=== PATIENT | female | born 1995 | race African-American/Black ===

== ENCOUNTER 2017-03-16 09:39 | Emergency (ER) | payer OTHER ==
[~2017-03-16] VITALS: Ht 162.6 cm; Wt 70.0 kg
[2017-03-16] MEDS ORDERED: ONDANSETRON HCL 4 MG/2 ML VIAL IVP ONE (10:00)
[2017-03-16] MEDS ORDERED: SODIUM CHLOR 0.9% 1000 ML INJ 1,000 ML IV SCH (10:00)
[2017-03-16] MEDS ORDERED: SODIUM CHLORIDE 0.9% FLUSH 10 ML FLUSH IV FLUSH PRN (10:00)
[2017-03-16] MEDS ORDERED: ZOFR4TAB3 SL (10:09)
--- NOTE | 2017-03-16 10:11 | PD ---
HPI Chief Complaint: GI Complaint Time Seen by Provider: 09:49 Travel History International Travel<30 days: No Contact w/Intl Traveler<30days: No Traveled to known affect area: No History of Present Illness HPI 21-year-old woman, 36 weeks with an EDC April 04, 2, first was a full-term uncomplicated vaginal delivery at 39 weeks, being seen by a websphere developer at [facility], who presents to the emergency department with nausea and vomiting for the past 3 days. States symptoms initially started with nausea and that she's had vomiting persistently since then. She states she has not been able to keep any food or drink down for the past 2-3 days. She denies any significant abdominal pain. She's had no pelvic cramping, bleeding, leakage of fluid. She states the baby feels vigorous and active. No fevers or chills. No diarrhea. No unusual or undercooked foods. No sick contacts. She otherwise had been feeling well and healthy. She has not had previous trouble with nausea and vomiting earlier in the . She do not have trouble vomiting and her previous . History Past Medical History Medical History: Denies Significant Hx Tetanus Vaccination: > 5 Years Influenza Vaccination: No LMP: 07/26/16 : 2 Para: 1 Past Surgical History Surgical History: No Previous Surgery Social History Alcohol Use: No Tobacco Use: No Allergies-Medications (Allergen,Severity, Reaction): Coded Allergies: No Known Allergies (Unverified , 03/16/17) Reported Meds & Prescriptions Reported Meds & Active Scripts Active Zofran Odt (Ondansetron Odt) 4 Mg Tab 4 Mg SL Q8HR PRN May substitute non-ODT form. Review of Systems Except as stated in HPI: all other systems reviewed are Neg Physical Exam Narrative GENERAL: Well-appearing 21-year-old woman, no acute distress. SKIN: Focused skin assessment warm/dry. NECK: Trachea midline. No JVD. CARDIOVASCULAR: Regular rate and rhythm. No murmur appreciated. RESPIRATORY: No accessory muscle use. Clear to auscultation. Breath sounds equal bilaterally. GASTROINTESTINAL: Abdomen is gravid, fairly taut. There is no tenderness at all. MUSCULOSKELETAL: No obvious deformities. No edema. NEUROLOGICAL: Awake and alert. No obvious cranial nerve deficits. Motor grossly within normal limits. Normal speech. PSYCHIATRIC: Appropriate mood and affect; insight and judgment normal. Data Data Last Documented VS Vital Signs Date Time Temp Pulse Resp B/P Pulse Ox O2 Delivery O2 Flow Rate FiO2 03/16/17 09:50 16 Orders Complete Blood Count With Diff (03/16/17 10:00) Comprehensive Metabolic Panel (03/16/17 10:00) Lipase (03/16/17 10:00) Urinalysis - C+S If Indicated (03/16/17 10:00) Iv Access Insert/Monitor (03/16/17 10:00) Ondansetron Inj (Zofran Inj) (03/16/17 10:00) Sodium Chlor 0.9% 1000 Ml Inj (Ns 1000 M (03/16/17 10:00) Sodium Chloride 0.9% Flush (Ns Flush) (03/16/17 10:00) Heart Tones (03/16/17 10:00) Urine Culture (03/16/17 08:55) Nitrofurantoin Monohyd Macrocr (Macrobid (03/16/17 11:45) Labs Laboratory Tests Test 03/16/17 03/16/17 08:55 10:00 Urine Color YELLOW Urine Turbidity HAZY Urine pH 6.5 Urine Specific [place] 1.024 Urine Protein 30 mg/dL Urine Glucose (UA) NEG mg/dL Urine Ketones 150 mg/dL Urine Occult Blood NEG Urine Nitrite NEG Urine Bilirubin NEG Urine Urobilinogen 4.0 MG/DL Urine Leukocyte Esterase LARGE Urine RBC 4 /hpf Urine WBC 80 /hpf Urine Squamous Epithelial 15 /hpf Cells Urine Bacteria FEW /hpf Urine Mucus FEW /lpf Microscopic Urinalysis Comment CULTURE INDICATED White Blood Count 5.7 TH/MM3 Red Blood Count 4.17 MIL/MM3 Hemoglobin 11.5 GM/DL Hematocrit 35.2 % Mean Corpuscular Volume 84.6 FL Mean Corpuscular Hemoglobin 27.7 PG Mean Corpuscular Hemoglobin 32.7 % Concent Red Cell Distribution Width 14.1 % Platelet Count 157 TH/MM3 Mean Platelet Volume 9.7 FL Neutrophils (%) (Auto) 75.3 % Lymphocytes (%) (Auto) 12.7 % Monocytes (%) (Auto) 11.5 % Eosinophils (%) (Auto) 0.2 % Basophils (%) (Auto) 0.3 % Neutrophils # (Auto) 4.3 TH/MM3 Lymphocytes # (Auto) 0.7 TH/MM3 Monocytes # (Auto) 0.7 TH/MM3 Eosinophils # (Auto) 0.0 TH/MM3 Basophils # (Auto) 0.0 TH/MM3 CBC Comment DIFF FINAL Differential Comment Sodium Level 136 MEQ/L Potassium Level 3.8 MEQ/L Chloride Level 104 MEQ/L Carbon Dioxide Level 22.4 MEQ/L Anion Gap 10 MEQ/L Blood Urea Nitrogen 7 MG/DL Creatinine 0.60 MG/DL Estimat Glomerular Filtration 150 ML/MIN Rate Random Glucose 55 MG/DL Calcium Level 8.6 MG/DL Total Bilirubin 0.7 MG/DL Aspartate Amino Transf 30 U/L (AST/SGOT) Alanine Aminotransferase 18 U/L (ALT/SGPT) Alkaline Phosphatase 141 U/L Total Protein 7.0 GM/DL Albumin 2.9 GM/DL Lipase 177 U/L [facility] Medical Decision Making Medical Screen Exam Complete: Yes Emergency Medical Condition: Yes Interpretation(s) LABS: CBC unremarkable. CMP unremarkable. Lipase unremarkable. Coags remarkable for pyuria. Differential Diagnosis Gastritis, enteritis, likely gastric motility, infection, UTI, other Narrative Course Medical decision making Well-appearing 21-year-old woman, 36 weeks , here with vomiting. No abdominal pain, no obese symptoms. Looks generally well. We'll check heart tones, check labs, IV fluid hydration. We'll discuss with OB hospitalist , we'll likely send her for OB check as well. Diagnosis Primary Impression: Nausea & vomiting Patient Instructions: General Instructions Additional Instructions: Use Zofran as needed for nausea or vomiting. Return immediately to the OB ED for any nominal cramping, bleeding, leakage of fluid, contractions, or decreased movement. Med/Other Pt SpecificInfo: Prescription(s) given Scripts Ondansetron Odt (Zofran Odt)4 Mg Tab4 Mg SL Q8HR PRN (Nausea/Vomiting) #15 TAB May substitute non-ODT form. Prov:Jair Bran MD 03/16/17 Disposition: 01 DISCHARGE HOME Condition: Stable Jair Bran MD March 16, 2017 10:11
[2017-03-16 10:33] LABS: AUTOMATED NEUTROPHIL # 4.3 TH/MM3 (1.8-7.7); BASOPHIL % 0.3 % (0.0-2.0); EOSINOPHIL % 0.2 % (0.0-4.0); HEMATOCRIT 35.2 % (35.0-46.0); HEMO FLAGS DIFF FINAL; LYMPH % 12.7 % (9.0-44.0); LYMPHOCYTE # 0.7 TH/MM3 (1.0-4.8); MEAN CELL VOLUME 84.6 FL (80.0-100.0); MEAN CORPUSCULAR HEMOGLOBIN 27.7 PG (27.0-34.0); MEAN CORPUSCULAR HGB CONC 32.7 % (32.0-36.0); MONO % 11.5 % (0.0-8.0); NEUT % 75.3 % (16.0-70.0); PLATELET COUNT 157 TH/MM3 (150-450); RED BLOOD COUNT 4.17 MIL/MM3 (4.00-5.30); RED CELL DISTRIBUTION WIDTH 14.1 % (11.6-17.2); WHITE BLOOD COUNT 5.7 TH/MM3 (4.0-11.0)
[2017-03-16 10:51] LABS: ALT (GPT) 18 U/L (10-53); ANION GAP 10 MEQ/L (5-15); AST (GOT) 30 U/L (15-37); BICARBONATE 22.4 MEQ/L (21.0-32.0); BLOOD UREA NITROGEN 7 MG/DL (7-18); CHLORIDE 104 MEQ/L (98-107); GLOMERULAR FILTRATION RATE 150 ML/MIN (>89); POTASSIUM 3.8 MEQ/L (3.5-5.1); SODIUM (NA) 136 MEQ/L (136-145)
[2017-03-16 10:54] LABS: ALKALINE PHOSPHATASE 141 U/L (45-117); TOTAL BILIRUBIN ADULT 0.7 MG/DL (0.2-1.0)
[2017-03-16 11:09] LABS: BACTERIA, URINE FEW /hpf; BLOOD, URINE NEG (NEG); COMMENT (UR) CULTURE INDICATED; CULTURE IF INDICATED CULTURE INDICATED; GLUCOSE,URINE NEG (NEG); KETONE, URINE 150 mg/dL (NEG); MUCUS URINE FEW /lpf (OCC); NITRITE,URINE NEG (NEG); PH, URINE 6.5 (5.0-8.5); SQUAMOUS EPITHELIAL CELL URINE 15 /hpf (0-5); URINE COLOR YELLOW (YELLW/STRAW)
[2017-03-16 11:38] VITALS: BP 108/60; TEMP 97.8
[2017-03-16] MEDS ORDERED: NITROFURANTOIN MONOHYD MACROCR 100 MG CAP PO ONE (11:45)
--- NOTE | 2017-03-16 12:45 | PD ---
HPI Chief Complaint Nausea and vomiting Date Seen: March 16, 2017 Time Seen: 12:40 Travel History International Travel<30 Days: No Contact w/Intl Traveler<30Days: No Known Affected Area: No History of Present Illness HPI 21-year-old who is at 37 weeks gestation comes here from the main ED. Patient states that she woke up with nausea vomiting and had some continued emesis and went to the main emergency department. She has no issues during this and sees Nayeli Taylor for her care who performed a group B strep 1 week ago. Last had a spontaneous vaginal delivery at 39 weeks without any issues. Patient was treated with IV fluids and anti- medics and states that she is feeling very much better and would like something to eat and drink. I spoke with the ED physician and requested patient come up to labor and delivery for monitoring given her dehydration History Past Medical History Medical History: Denies Significant Hx Obstetric History Obstetric History Spontaneous vaginal delivery at 39 weeks Past Surgical History Surgical History: No Previous Surgery Family History Family History: Negative Social History Alcohol Use: No Tobacco Use: No Substance Abuse: No Allergies-Medications (Allergen,Severity, Reaction): Coded Allergies: No Known Allergies (Unverified , 03/16/17) Home Meds Active Scripts Ondansetron Odt (Zofran Odt)4 Mg Tab4 Mg SL Q8HR PRN (Nausea/Vomiting) #15 TAB May substitute non-ODT form. Prov:Jair Bran MD 03/16/17 Review of Systems Except as stated in HPI: all other systems reviewed are Neg Physical Exam Vital Signs Date Time Temp Pulse Resp B/P Pulse Ox O2 Delivery O2 Flow Rate FiO2 03/16/17 11:38 97.8 77 16 108/60 100 03/16/17 09:50 16 Narrative GENERAL: Well-nourished, well-developed patient. SKIN: Warm and dry. CARDIOVASCULAR: Regular rate and rhythm without murmurs, gallops, or rubs. RESPIRATORY: Breath sounds equal bilaterally. No accessory muscle use. BREASTS: Bilateral exam showed no masses , no retractions, no nipple discharge. ABDOMEN/GI: Abdomen soft, non-tender, bowel sounds present, no rebound, no guarding Gravid to [-37] weeks size Fundal Height: [37-] GENITOURINARY: Deferred External Genitalia: intact and normal in appearance BUS glands: [-] Cervix: [-] Dilatation: [-] Effacement: [-] Station: [-] Presentation: [-] Membranes: [intact or ruptured] Uterine Contractions: [None-] FHT's: Category: [-1] Baseline: [-140] Reactive: [-Moderate] Variability: [Moderate-] Decels: [Absent-] EXTREMITIES: No cyanosis or edema. BACK: Nontender without obvious deformity. No CVA tenderness. NEUROLOGICAL: Awake and alert. Motor and sensory grossly within normal limits. Five out of 5 muscle strength in all muscle groups. Normal speech. Data Data Vital Signs Reviewed: Yes Orders Complete Blood Count With Diff (03/16/17 10:00) Comprehensive Metabolic Panel (03/16/17 10:00) Lipase (03/16/17 10:00) Urinalysis - C+S If Indicated (03/16/17 10:00) Iv Access Insert/Monitor (03/16/17 10:00) Ondansetron Inj (Zofran Inj) (03/16/17 10:00) Sodium Chlor 0.9% 1000 Ml Inj (Ns 1000 M (03/16/17 10:00) Sodium Chloride 0.9% Flush (Ns Flush) (03/16/17 10:00) Heart Tones (03/16/17 10:00) Urine Culture (03/16/17 08:55) Nitrofurantoin Monohyd Macrocr (Macrobid (03/16/17 11:45) Labs Laboratory Tests Test 03/16/17 03/16/17 08:55 10:00 Urine Color YELLOW Urine Turbidity HAZY Urine pH 6.5 Urine Specific [place] 1.024 Urine Protein 30 Urine Glucose (UA) NEG Urine Ketones 150 Urine Occult Blood NEG Urine Nitrite NEG Urine Bilirubin NEG Urine Urobilinogen 4.0 Urine Leukocyte Esterase LARGE Urine RBC 4 Urine WBC 80 Urine Squamous Epithelial 15 Cells Urine Bacteria FEW Urine Mucus FEW Microscopic Urinalysis Comment CULTURE INDICATED White Blood Count 5.7 Red Blood Count 4.17 Hemoglobin 11.5 Hematocrit 35.2 Mean Corpuscular Volume 84.6 Mean Corpuscular Hemoglobin 27.7 Mean Corpuscular Hemoglobin 32.7 Concent Red Cell Distribution Width 14.1 Platelet Count 157 Mean Platelet Volume 9.7 Neutrophils (%) (Auto) 75.3 Lymphocytes (%) (Auto) 12.7 Monocytes (%) (Auto) 11.5 Eosinophils (%) (Auto) 0.2 Basophils (%) (Auto) 0.3 Neutrophils # (Auto) 4.3 Lymphocytes # (Auto) 0.7 Monocytes # (Auto) 0.7 Eosinophils # (Auto) 0.0 Basophils # (Auto) 0.0 CBC Comment DIFF FINAL Differential Comment Sodium Level 136 Potassium Level 3.8 Chloride Level 104 Carbon Dioxide Level 22.4 Anion Gap 10 Blood Urea Nitrogen 7 Creatinine 0.60 Estimat Glomerular Filtration 150 Rate Random Glucose 55 Calcium Level 8.6 Total Bilirubin 0.7 Aspartate Amino Transf 30 (AST/SGOT) Alanine Aminotransferase 18 (ALT/SGPT) Alkaline Phosphatase 141 Total Protein 7.0 Albumin 2.9 Lipase 177 Date/Time Procedure Status Source Growth 03/16/17 08:55 Urine Culture Worksheet Urine Clean Catch Pending MDM Medical Record Reviewed: Yes Plan Patient much improved since her IV fluids and anti-medics in the ED Category 1 heart rate tracing We'll give her oral hydration to ensure that she is able to keep down Patient had a follow-up to Nayeli Taylor on and has a prescription for Zofran to take home with her Diagnosis Diagnosis: Primary Impression: Nausea & vomiting Additional Impressions: 37 weeks gestation of Mild dehydration Disposition: 01 DISCHARGE HOME Condition: Stable Scripts Ondansetron Odt (Zofran Odt)4 Mg Tab4 Mg SL Q8HR PRN (Nausea/Vomiting) #15 TAB May substitute non-ODT form. Prov:Jair Brna MD 03/16/17 Patient Instructions: General Instructions, Nausea and Vomiting in ( ED) Additional Instructions: Use Zofran as needed for nausea or vomiting. Return immediately to the OB ED for any nominal cramping, bleeding, leakage of fluid, contractions, or decreased movement. Departure Forms: Tests/Procedures Dayan Jenkins MD March 16, 2017 12:45
== END 2017-03-16 13:20 | disposition home or self-care (01) ==
LOC: HOBED 09:39 → NEPD 11:51 → HOBED 11:55
DX: O21.0 Mild hyperemesis gravidarum (principal); E86.0 Dehydration; B96.89 Other specified bacterial agents as the cause of diseases classified elsewhere; Z3A.36 36 weeks gestation of pregnancy
CPT/HCPCS: 59025; 80053; 81001; 83690; 85025; 87086; 96361; 96374; 99284; J2405; J7030

== ENCOUNTER 2017-04-01 06:04 | Inpatient (IN) | payer OTHER ==
[2017-04-01] VITALS (7 sets, daily range): BP systolic 102–106; BP diastolic 67–83; PULSE 67–77; RESP 16–20; TEMP 98–98.4; O2SAT 99
[~2017-04-01] VITALS: Ht 162.6 cm; Wt 69.4 kg
[~2017-04-01 06:04] MED LIST: ZOFR4TAB3 SL
[2017-04-01] MEDS ORDERED: OXYTOCIN 30 UNITS-500ML PREMIX 500 ML ONE (06:14)
[2017-04-01] MEDS ORDERED: [UNRECOGNIZED DRUG - OTHER] (06:55)
[2017-04-01] MEDS ORDERED: SODIUM CHLORIDE 0.9% FLUSH 10 ML FLUSH IV FLUSH PRN (07:00)
[2017-04-01] MEDS ORDERED: ZOLPIDEM TARTRATE 5 MG TAB PO PRN (07:00)
[2017-04-01] MEDS ORDERED: ALUMINUM/MAGNESIUM/SIMETH 30 ML CUP PO PRN (07:00)
[2017-04-01] MEDS ORDERED: ONDANSETRON ODT 4 MG TAB PO PRN (07:00)
[2017-04-01] MEDS ORDERED: BENZOCAINE 20% TOPICAL SPRAY 60 ML CAN TOPICAL PRN (07:00)
[2017-04-01] MEDS ORDERED: WITCH HAZEL 50%/GLYCERIN 12.5% 40 PAD JAR TOPICAL PRN (07:00)
[2017-04-01] MEDS ORDERED: DOCUSATE SODIUM 50 MG/SENNA 8.6 MG TAB PO PRN (07:00)
--- NOTE | 2017-04-01 07:13 | PD.OB.DELI ---
Delivery Date: Apr 01, 2017 Anesthesia: None Episiotomy: None Vaginal Delivery: Normal, Spontaneous Presentation: Occiput anterior Nuchal Cord: None Delayed cord clamping (45 sec): No : Female One Minute : 8 Five Minute : 9 Weight: 5lb 14.2 oz Placenta: Spontaneous delivery, Intact, 3 vessel cord Laceration: No lacerations Additional Information Patient presented to L & D complete. AROM was performed and patient delivered via after admission to L & D. EBL 200cc Precipitous delivery Delivery performed by Dr. Celeste and Keely Goodrich MD Apr 01, 2017 07:13
[2017-04-01] MEDS ORDERED: OXYTOCIN 10 UNIT/ML AMP IM ONE (07:30)
--- NOTE | 2017-04-01 07:36 | HHI.HP ---
HPI Chief Complaint Contractions Date Seen: Apr 01, 2017 Time Seen: 06:30 Travel History International Travel<30 Days: No Contact w/Intl Traveler<30Days: No Known Affected Area: No History of Present Illness HPI Patient 21-year-old black female at 39 weeks followed by Nayeli Taylor care presents now precipitous labor completely dilated. She is intact membranes heart rate tracing is reactive and she is lb regularly. Cervix is 10 cm with a bulging bag Para: 1 : 2 History Obstetric History Obstetric History One vaginal delivery Social History Alcohol Use: No Tobacco Use: No Substance Abuse: No Allergies-Medications (Allergen,Severity, Reaction): Coded Allergies: No Known Allergies (Unverified , 04/01/17) Home Meds Reported Medications [prenatalvitamin] No Conflict Check Daily 04/01/17 Discontinued Scripts Ondansetron Odt (Zofran Odt)4 Mg Tab4 Mg SL Q8HR PRN (Nausea/Vomiting) #15 TAB May substitute non-ODT form. Prov:Jair Bran MD 03/16/17 Review of Systems General / Constitutional: No: Fever, Weight Gain, Chills, Other Eyes: No: Diploplia, Blurred Vision, Visual changes, Pain, Photophobia HENT: No: Headaches, Vertigo, Lightheadedness Cardiovascular: No: Irregular Rhythm, Chest Pain or Discomfort, Palpitations, Tachycardia, Syncope, Varicosities, Edema, Cyanosis Respiratory: No: Cough, Short of Breath, Other Gastrointestinal: No: Nausea, Vomiting, Diarrhea Genitourinary: No: Decreased Urinary Output, Oliguria Musculoskeletal: No: Limited ROM, Weakness, Cramping, Edema, Pain Skin: No Rash, No Itching, No Dryness, No Lumps, No Change in Pigmentation, No Change in Nails, No Alopecia, No Lesions Neurologic: No: Weakness, Dizziness, Syncope, Focal Abnormalities, Coordination Problem, Headache, Slurred Speech, Seizures Psychiatric: No: Depression, Suicidal Ideations, Homicidal Ideation Endocrine: No: Heat Intolerance, Cold Intolerance, Polydipsia, Polyuria, Other Physical Exam Vital Signs Date Time Temp Pulse Resp B/P Pulse Ox O2 Delivery O2 Flow Rate FiO2 04/01/17 07:23 18 04/01/17 07:21 98.0 04/01/17 07:15 77 102/83 04/01/17 06:56 18 Narrative GENERAL: Well-nourished, well-developed patient. SKIN: Warm and dry. HEAD: Normocephalic and atraumatic. EYES: No scleral icterus. No injection or drainage. ENT: No nasal drainage noted. Mucous membranes pink. Airway patent. NECK: Supple, trachea midline. No JVD. CARDIOVASCULAR: Regular rate and rhythm without murmurs, gallops, or rubs. RESPIRATORY: Breath sounds equal bilaterally. No accessory muscle use. BREASTS: Bilateral exam showed no masses , no retractions, no nipple discharge. ABDOMEN/GI: Abdomen soft, non-tender, bowel sounds present, no rebound, no guarding Gravid to [39-] weeks size Fundal Height: [39-] GENITOURINARY: External Genitalia: intact and normal in appearance BUS glands: [-] Cervix: [-] Dilatation: [10-] Effacement: [-100] Station: [-1] Presentation: [vtx-] Membranes: [intact ] Uterine Contractions: [reg-] FHT's: Category: [-1] Baseline: [133-] Reactive: [yes-] Variability: [mod-] Decels: [-0] EXTREMITIES: No cyanosis or edema. BACK: Nontender without obvious deformity. No CVA tenderness. NEUROLOGICAL: Awake and alert. Motor and sensory grossly within normal limits. Five out of 5 muscle strength in all muscle groups. Normal speech. Data Data Orders Oxytocin 30 Units-500ml Premix (Pitocin (04/01/17 06:14) Oxytocin Inj (Pitocin Inj) (04/01/17 07:30) Vital Signs (Adult) .QSHIFT (04/01/17 06:54) Activity Oob Ad Velma (04/01/17 06:54) Ice / Cold Pack PRN (04/01/17 06:54) Discontinue Iv (04/01/17 06:54) Sitz Bath PRN (04/01/17 06:54) ^ Massage (04/01/17 06:54) ^ Rhogam (04/01/17 06:54) Urinary Catheter Management .PRN (04/01/17 06:54) Diet Regular Basic (04/01/17 Breakfast) Sodium Chloride 0.9% Flush (Ns Flush) (04/01/17 09:00) Sodium Chloride 0.9% Flush (Ns Flush) (04/01/17 07:00) Acetaminophen (Tylenol) (04/01/17 07:00) Ibuprofen (Motrin) (04/01/17 07:00) Benzocaine 20% Top Spr (Americaine 20% T (04/01/17 07:00) Witch Laquita-Glycerin Pad (Tucks Pads) (04/01/17 07:00) Docusate Sodium-Senna (Nisha-Colace) (04/01/17 07:00) Zolpidem (Ambien) (04/01/17 07:00) Zzqrqza-Twmit-Hkvipey Inj (M-M-R Ii Inj) (04/01/17 16:00) Wmyx-Lcg-Ndknmk (Booster) Inj (Boostrix (04/01/17 16:00) Al-Mag Hy-Si 40-40-4 Mg/Ml Liq (Mag-Al P (04/01/17 07:00) Ondansetron Odt (Zofran Odt) (04/01/17 07:00) Assessment/Plan Assessment and Plan This patient is 21-year-old black female 39 weeks presents in precipitous labor completely dilated and the second stage. heart rate tracing is reactive and anticipate vaginal delivery imminently Ezequiel Diaz II, MD Apr 01, 2017 07:35
[2017-04-01] MEDS ORDERED: LACTATED RINGER'S 1000 ML INJ 1,000 ML IV PRN (07:59)
[2017-04-01] MEDS ORDERED: MINERAL OIL 10 ML VIAL TOPICAL PRN (08:00)
[2017-04-01] MEDS ORDERED: CITRIC ACID-SODIUM CITRATE LIQ 30 ML UDC PO SCH (08:00)
[2017-04-01] MEDS ORDERED: SODIUM CHLORID 0.9% 500 ML INJ 500 ML IV PRN (08:00)
[2017-04-01] MEDS ORDERED: LIDOCAINE HCL 1% 50 ML VIAL I-DERMAL PRN (08:00)
[2017-04-01] MEDS ORDERED: OXYTOCIN 30 UNITS-500ML PREMIX 500 ML IV ONE (08:00)
[2017-04-01] MEDS ORDERED: LIDOCAINE HCL 1% 50 ML VIAL INFIL PRN (08:00)
[2017-04-01 08:09] LABS: AUTOMATED NEUTROPHIL # 6.8 TH/MM3 (1.8-7.7); BASOPHIL % 0.5 % (0.0-2.0); EOSINOPHIL % 0.2 % (0.0-4.0); HEMATOCRIT 35.6 % (35.0-46.0); HEMO FLAGS DIFF FINAL; LYMPH % 11.2 % (9.0-44.0); LYMPHOCYTE # 0.9 TH/MM3 (1.0-4.8); MEAN CELL VOLUME 83.6 FL (80.0-100.0); MEAN CORPUSCULAR HEMOGLOBIN 28.3 PG (27.0-34.0); MEAN CORPUSCULAR HGB CONC 33.9 % (32.0-36.0); MONO % 4.8 % (0.0-8.0); NEUT % 83.3 % (16.0-70.0); PLATELET COUNT 183 TH/MM3 (150-450); RED BLOOD COUNT 4.26 MIL/MM3 (4.00-5.30); RED CELL DISTRIBUTION WIDTH 14.5 % (11.6-17.2); WHITE BLOOD COUNT 8.2 TH/MM3 (4.0-11.0)
[2017-04-01] MEDS ORDERED: SODIUM CHLOR 0.9% 1000 ML INJ 1,000 ML IV PRN (08:19)
[2017-04-01] MEDS: IBUPROFEN 600 MG TAB PO PRN ×3 (09:04→23:33)
[2017-04-01] MEDS ORDERED: MEASLES, MUMPS, RUBELLA VACCINE 0.5 ML VIAL SQ ONE (16:00)
[2017-04-01] MEDS ORDERED: DIPHTH/TETANUS/ACEL PERTUSSIS (BOOSTER) 0.5 ML VIAL/PFS IM ONE (16:00)
[2017-04-01 20:42] LABS: BLOOD, URINE LARGE (NEG); COMMENT (UR) CULTURE INDICATED; CULTURE IF INDICATED CULTURE INDICATED; GLUCOSE,URINE NEG (NEG); KETONE, URINE NEG (NEG); NITRITE,URINE NEG (NEG); PH, URINE 7.5 (5.0-8.5); URINE COLOR YELLOW (YELLW/STRAW)
[2017-04-01 20:48] LABS: BARBITURATES, URINE NEG (NEG)
[2017-04-01 20:49] LABS: AMPHETAMINE, URINE NEG (NEG); COCAINE, URINE NEG (NEG)
--- NOTE | 2017-04-02 06:57 | HHI.OB ---
Subjective Remarks day # 1 AFVSS overnight. Decreased lochia. Denies dysuria. No breast tenderness. She is feeding the baby via formula but is willing to consider breast feeding. Appetite good. No nausea or vomiting. Positive flatus /bowel movement. Ambulating well. Denies calf pain or shortness of breath. Otherwise, she is doing well this morning and has no other complaints. (Lexi Gonzales MD R2) Objective Vitals/I&O Vital Signs Date Time Temp Pulse Resp B/P Pulse Ox O2 Delivery O2 Flow Rate FiO2 04/01/17 20:00 98.4 67 16 106/67 99 04/01/17 07:45 20 04/01/17 07:43 67 105/72 04/01/17 07:23 20 04/01/17 07:23 18 04/01/17 07:21 98.0 04/01/17 07:15 77 102/83 Objective Remarks GENERAL: Well-nourished, well-developed patient. CARDIOVASCULAR: Regular rate and rhythm without murmurs, gallops, or rubs. RESPIRATORY: Breath sounds equal bilaterally. No accessory muscle use. ABDOMEN/GI: Abdomen soft, non-tender. Fundus: Firm, non-tender at umbilicus. GENITOURINARY: Light to moderate bleeding. EXTREMITIES: No cyanosis or edema, non-tender, without signs of DVT. Medications and IVs Current Medications Medications (Trade) Dose Ordered Sig/Mati Route Start Time Stop Time Status Last Admin (NS Flush) 2 ml BID IV FLUSH 04/01/17 09:00 (NS Flush) 2 ml UNSCH PRN IV FLUSH 04/01/17 07:00 (Tylenol) 650 mg Q4H PRN PO 04/01/17 07:00 (Motrin) 600 mg Q6H PRN PO 04/01/17 07:00 04/01/17 23:33 (Americaine 20% Top Spr) 1 spray Q4H PRN TOPICAL 04/01/17 07:00 04/01/17 09:04 (Tucks Pads) 1 applic QID PRN TOPICAL 04/01/17 07:00 04/01/17 09:04 (Nisha-Colace) 2 tab Q12H PRN PO 04/01/17 07:00 04/01/17 09:04 (Ambien) 5 mg HS PRN PO 04/01/17 07:00 (Mag-Al Plus Susp Liq) 15 ml Q8H PRN PO 04/01/17 07:00 Ondansetron HCl 4 mg 4 mg Q6H PRN PO 04/01/17 07:00 Lactated Ringer's 1,000 ml @ 125 mls/hr Q8H IV 04/01/17 07:59 Lactated Ringer's 1,000 ml @ 3,000 mls/hr Q20M PRN IV 04/01/17 07:59 Sodium Chloride 500 ml @ 1,000 mls/hr ONCE PRN IV 04/01/17 08:00 04/02/17 07:59 (NS 1000 ml Inj) 1,000 ml @ 100 mls/hr Q10H PRN IV 04/01/17 08:19 (fentaNYL INJ) 50 mcg Q1H PRN IV PUSH 04/01/17 08:00 (fentaNYL INJ) 100 mcg Q1H PRN IV PUSH 04/01/17 08:00 (Muri-Lube Oil) 10 ml UNSCH PRN TOPICAL 04/01/17 08:00 (Lexi Gonzales MD R2) Assessment/Plan Assessment and Plan 21 y/o female who is PPD# 1 s/p . -Continue routine care. -Percocet and Motrin PRN pain. -Encouraged OOB. Advised pelvic rest for 6 wks. -Re: ctrl, she would like OCP. -D/c in 1-[address] Thomson (Lexi Gonzales MD R2) Attending Attestation Patient seen and examined. Agree with resident's assessment and plan. (Yolanda Thomson MD) Lexi Gonzales MD R2 Apr 02, 2017 06:57 Yolanda Thomson MD Apr 02, 2017 09:19
[2017-04-02] MEDS: IBUPROFEN 600 MG TAB PO PRN ×2 (07:06→20:11)
[2017-04-02] MEDS: LACTATED RINGER'S 1000 ML INJ 1,000 ML IV SCH ×3 (07:59→22:13)
[2017-04-02 08:25] VITALS: BP 102/65; PULSE 72; RESP 16; TEMP 97.5
[2017-04-02] MEDS: SODIUM CHLORIDE 0.9% FLUSH 10 ML FLUSH IV FLUSH SCH ×2 (09:00→21:00)
[2017-04-02 10:12] LABS: AUTOMATED NEUTROPHIL # 6.5 TH/MM3 (1.8-7.7); BASOPHIL # 0.1 TH/MM3 (0-0.2); BASOPHIL % 0.8 % (0.0-2.0); EOSINOPHIL # 0.1 TH/MM3 (0-0.4); EOSINOPHIL % 1.3 % (0.0-4.0); HEMATOCRIT 33.3 % (35.0-46.0); HEMO FLAGS DIFF FINAL; LYMPH % 27.3 % (9.0-44.0); LYMPHOCYTE # 2.8 TH/MM3 (1.0-4.8); MEAN CELL VOLUME 83.4 FL (80.0-100.0); MEAN CORPUSCULAR HEMOGLOBIN 28.4 PG (27.0-34.0); MONO % 7.7 % (0.0-8.0); NEUT % 62.9 % (16.0-70.0); PLATELET COUNT 219 TH/MM3 (150-450); RED CELL DISTRIBUTION WIDTH 14.7 % (11.6-17.2); WHITE BLOOD COUNT 10.3 TH/MM3 (4.0-11.0)
[2017-04-02 21:50] VITALS: BP 97/69; PULSE 75; RESP 16; TEMP 97.6
[2017-04-02] MEDS: PETROLATUM 30 GM TUBE TOPICAL PRN (21:52)
[2017-04-03] MEDS: PETROLATUM 30 GM TUBE TOPICAL PRN (00:44)
[2017-04-03] MEDS: ACETAMINOPHEN 325 MG TAB PO PRN ×2 (00:44→07:40)
[2017-04-03] MEDS: IBUPROFEN 600 MG TAB PO PRN (04:22)
--- NOTE | 2017-04-03 06:57 | HHI.OB ---
Subjective Remarks day # 2. AFVSS overnight. Decreased lochia. Denies dysuria. No breast tenderness. She is feeding the baby via formula. Appetite good. No nausea or vomiting. Positive flatus/bowel movement. Ambulating well. Denies calf pain or shortness of breath. Otherwise, she is doing well this morning and has no other complaints. (Lexi Gonzales MD R2) Objective Vitals/I&O Vital Signs Date Time Temp Pulse Resp B/P Pulse Ox O2 Delivery O2 Flow Rate FiO2 04/02/17 21:50 97/69 04/02/17 21:50 97.6 75 16 97/69 04/02/17 21:50 97.6 75 16 04/02/17 08:25 97.5 72 16 102/65 Objective Remarks GENERAL: Well-nourished, well-developed patient. CARDIOVASCULAR: Regular rate and rhythm without murmurs, gallops, or rubs. RESPIRATORY: Breath sounds equal bilaterally. No accessory muscle use. ABDOMEN/GI: Abdomen soft, non-tender. Fundus: Firm, non-tender at umbilicus. GENITOURINARY: Light to moderate bleeding. EXTREMITIES: No cyanosis or edema, non-tender, without signs of DVT. Medications and IVs Current Medications Medications (Trade) Dose Ordered Sig/Mati Route Start Time Stop Time Status Last Admin (NS Flush) 2 ml BID IV FLUSH 04/01/17 09:00 (NS Flush) 2 ml UNSCH PRN IV FLUSH 04/01/17 07:00 (Tylenol) 650 mg Q4H PRN PO 04/01/17 07:00 04/03/17 00:44 (Motrin) 600 mg Q6H PRN PO 04/01/17 07:00 04/03/17 04:22 (Americaine 20% Top Spr) 1 spray Q4H PRN TOPICAL 04/01/17 07:00 04/01/17 09:04 (Tucks Pads) 1 applic QID PRN TOPICAL 04/01/17 07:00 04/01/17 09:04 (Nisha-Colace) 2 tab Q12H PRN PO 04/01/17 07:00 04/01/17 09:04 (Ambien) 5 mg HS PRN PO 04/01/17 07:00 (Mag-Al Plus Susp Liq) 15 ml Q8H PRN PO 04/01/17 07:00 Ondansetron HCl 4 mg 4 mg Q6H PRN PO 04/01/17 07:00 Lactated Ringer's 1,000 ml @ 125 mls/hr Q8H IV 04/01/17 07:59 Lactated Ringer's 1,000 ml @ 3,000 mls/hr Q20M PRN IV 04/01/17 07:59 (NS 1000 ml Inj) 1,000 ml @ 100 mls/hr Q10H PRN IV 04/01/17 08:19 (fentaNYL INJ) 50 mcg Q1H PRN IV PUSH 04/01/17 08:00 (fentaNYL INJ) 100 mcg Q1H PRN IV PUSH 04/01/17 08:00 (Muri-Lube Oil) 10 ml UNSCH PRN TOPICAL 04/01/17 08:00 (Vaseline Oint) 1 applic UNSCH PRN TOPICAL 04/02/17 17:30 04/03/17 00:44 (Lexi Gonzales MD R2) Assessment/Plan Assessment and Plan 21 y/o female who is PPD# 2 s/p . -Continue routine care. -Percocet and Motrin PRN pain. -Encouraged OOB. Advised pelvic rest for 6 wks. -Re: ctrl, she would like OCP. -Anticipate discharge home today. dw Dr. Salguero (Lexi Gonzales MD R2) Attending Attestation PPD #1 s/p Doing well D/c home PP precautions reviewed Patient seen and examined. D/w Dr. Gonzales and Dr. Bonilla. (Kimi Salguero MD) Lexi Gonzales MD R2 Apr 03, 2017 06:57 Kimi Salguero MD Apr 03, 2017 08:27
[2017-04-03] MEDS ORDERED: PERI8.6T PO (06:59)
[2017-04-03] MEDS ORDERED: IBUP-232 PO (06:59)
--- NOTE | 2017-04-03 07:00 | HHI.DCPOC ---
Discharge Care Plan Diagnosis: (1) (spontaneous vaginal delivery) Report Symptoms to Your Doctor -Temperature above 100.5 degrees -Redness, of incision or excessive or foul smelling drainage -Unusual pain or calf pain -Increased vaginal bleeding -Painful or difficulty urinating -Feelings of extreme sadness or anxiety after 2 weeks Goals to Promote Your Health * To prevent worsening of your condition and complications * To maintain your health at the optimal level Directions to Meet Your Goals Take your medications as prescribed Follow your dietary instruction Follow activity as directed Ensure plenty of rest for recovery Drink fluids for hydration Keep your appointments as scheduled Take your immunizations and boosters as scheduled If your symptoms worsen call your PCP, if no PCP go to Urgent Care Center or Emergency Room Smoking is Dangerous to Your Health. Avoid second hand smoke Call the 24-hour crisis hotline for domestic abuse at Lxei Gonzales MD R2 Apr 03, 2017 06:59 Kimi Salguero MD Apr 03, 2017 08:31
[2017-04-03] MEDS ORDERED: LEVO-245 PO (07:01)
[2017-04-03] MEDS: LACTATED RINGER'S 1000 ML INJ 1,000 ML IV SCH (07:59)
[2017-04-03 08:00] VITALS: BP 101/69; PULSE 84; RESP 20; TEMP 98.2
[2017-04-03] MEDS: SODIUM CHLORIDE 0.9% FLUSH 10 ML FLUSH IV FLUSH SCH (09:00)
[2017-04-03 09:54] LABS: RAPID PLASMA REAGIN SCREEN NON-REACTIVE (NON-REACTVE)
[2017-04-06 10:19] LABS: BATH SALTS (MDPV) UR NEG (NEG); ECSTASY (MDMA) UR NEG (NEG); GABAPENTIN UR NEG (NEG); HEROIN (6-ACETYLMORPHINE) UR NEG (NEG); HYDROMORPHONE U NEG (NEG); K2 SPICE UR NEG (NEG); OBMETHADONE UR NEG (NEG); OXYCODONE (PERCODAN) NEG (NEG); PHENCYCLIDINE URINE NEG (NEG)
== END 2017-04-03 12:00 | disposition home or self-care (01) | DRG 775 ==
LOC: HOBED 06:04 → H2EB 06:09 → H1EA 08:22
PROVIDERS: ADMIT Obstetrics & Gynecology Maternal & Fetal Medicine; ATTEND Obstetrics & Gynecology Maternal & Fetal Medicine
PROC: 10E0XZZ Delivery of Products of Conception, External Approach (ICD-10-PCS; principal; 2017-04-01)
PROC: 10907ZC Drainage of Amniotic Fluid, Therapeutic from Products of Conception, Via Natural or Artificial Opening (ICD-10-PCS; 2017-04-01)
DX: O62.3 Precipitate labor (principal); Z37.0 Single live birth; Z3A.39 39 weeks gestation of pregnancy
CPT/HCPCS: 59025; 80074; 80307; 81001; 85025; 86592; 86703; 86900; 86901; 87086; 99285; G0481; J2590